=== PATIENT | female | born 1950 | race Caucasian/White ===

== ENCOUNTER 2017-08-25 19:55 | Observation (INO) | payer OTHER, MEDICARE ==
[2017-08-25] MEDS ORDERED: ZOFRAN ODT4 M1 SL (20:30)
[2017-08-25] MEDS ORDERED: PANTOPRAZOLE SO40 M1 PO (20:30)
[2017-08-25] MEDS ORDERED: PRINIVIL10 M1 PO (20:30)
[2017-08-25 20:48] LABS: ABSOLUTE BASOPHIL COUNT 0 /CUMM (0.0-0.2); ABSOLUTE EOSINOPHIL COUNT 0.1 /CUMM (0.0-0.7); ABSOLUTE GRANULOCYTE CT 14.4 /CUMM (1.4-6.5); ABSOLUTE LYMPH COUNT 0.9 /CUMM (1.2-3.4); ABSOLUTE MONOCYTE COUNT 0.2 /CUMM (0.10-0.60); BASOPHIL % 0.2 % (0.0-2.0); EOSINOPHIL % 0.4 % (0-5); HEMATOCRIT 48.3 % (37-47); MEAN CORPUSCULAR HGB 30.6 PG (27.0-31.0); MEAN CORPUSCULAR HGB CONC 34.1 G/DL (33.0-37.0); MEAN CORPUSCULAR VOLUME 89.6 FL (81.0-99.0); MEAN PLATELET VOLUME 8.1 FL (7.4-10.4); PLATELET COUNT 304 /CUMM (130-400); RBC DISTRIBUTION WIDTH 13.7 % (11.5-14.5); RED BLOOD CELL CT 5.39 /CUMM (4.20-5.40); WHITE BLOOD CELL COUNT 15.7 /CUMM (4.8-10.8)
[2017-08-25 21:08] LABS: GRANULOCYTE % 92.1 % (42.2-75.2)
--- NOTE | 2017-08-26 00:34 | ED GI/GU/ABDOMINAL COMPLAINT ---
See Addendum History of Present Illness General Chief Complaint: General Adult Stated Complaint: "IM HAVING A CHRONS ATTACK" Source: patient Exam Limitations: no limitations Vital Signs & Intake/Output Vital Signs & Intake/Output Vital Signs Date Time Temp Pulse Resp B/P B/P Pulse O2 O2 Flow FiO2 Mean Ox Delivery Rate 08/26 0330 98.4 70 20 142/74 99 Room Air 08/26 0122 98.5 72 20 138/80 96 Room Air 08/25 2030 97.6 73 22 167/124 97 Allergies Coded Allergies: Penicillins ("FLAT LINE" 08/25/17) Reconcile Medications Lisinopril (Prinivil) 10 MG TABLET 1 TAB PO DAILY HTN (Reported) Ondansetron (Zofran Odt) 4 MG TAB.RAPDIS 1 TAB SL TID PRN NAUSEA (Reported) Pantoprazole Sodium 40 MG TABLET.DR 1 TAB PO DAILY PRN GERD (Reported) Triage Note: PER PT FLARE UP OF CHRONS SINCE AFTERNNO, REPORTS PAIN BELOW UMBILICUS. IT NEVER GOES AWAY UNTIL I GET IV PAIN MEDS Triage Nurses Notes Reviewed? yes ? n Is pt currently ? No Onset: Gradual Duration: hour(s): Timing: recent history Quality/Severity: cramping, sharpness Location: lower abdomen Radiation: no radiation Activities at Onset: none Prior Abdominal Problems: similar symptoms Modifying Factors: Worsens With: palpation, vomiting. Associated Symptoms: abdominal pain, nausea/vomiting HPI: 67 yo woman h/o crohn's disease, presents with lower abdominal pain, nausea, vomiting. "I am having a crohn's flare.... usually I need antibiotics and steroids...." Her last BM was around yesterday at 2pm, around the same time that she developed abdominal pain. She notes her last flare was one month ago. She notes no fever, chills, chest pain, dizziness. She notes her trigger was likely tostitos. Past History Travel History Traveled to [place] past 21 day No Medical History Any Pertinent Medical History? see below for history Neurological: NONE EENT: NONE Cardiovascular: hypertension Respiratory: NONE Gastrointestinal: CHRONS Hepatic: NONE Renal: NONE Musculoskeletal: NONE Psychiatric: NONE Endocrine: NONE Surgical History Surgical History: none Psychosocial History What is your primary language Estonian Tobacco Use: Never used Family History Hx Contributory? No Review of Systems Review of Systems Constitutional: Reports: no symptoms. EENTM: Reports: no symptoms. Respiratory: Reports: no symptoms. Cardiovascular: Reports: no symptoms. GI: Reports: no symptoms. Genitourinary: Reports: no symptoms. Musculoskeletal: Reports: no symptoms. Skin: Reports: no symptoms. Neurological/Psychological: Reports: no symptoms. Hematologic/Endocrine: Reports: no symptoms. Immunologic/Allergic: Reports: no symptoms. All Other Systems: Reviewed and Negative Physical Exam Physical Exam General Appearance: well developed/nourished Head: atraumatic, normal appearance Eyes: Bilateral: normal appearance. Ears, Nose, Throat, Mouth: hearing grossly normal, moist mucous membrane Neck: normal inspection Respiratory: normal breath sounds, chest non-tender, no respiratory distress, quiet respiration, lungs clear Cardiovascular: regular rate/rhythm Gastrointestinal: soft, lower abdominal tenderness to palpation, no rebound. no guarding. Back: normal inspection Extremities: normal range of motion Neurologic/Psych: no motor/sensory deficits, awake, alert, oriented x 3 Skin: intact Core Measures ACS in differential dx? No Sepsis Present: No Sepsis Focused Exam Completed? No Progress Differential Diagnosis: appendicitis, biliary colic, crohn's flare vs other. uti Plan of Care: Orders Procedure Date/time Status Nothing by Mouth 08/[address] in observation 08/26 0551 Active Pathway - chart 08/26 0549 Active Patient Data 08/26 0549 Active Code Status 08/26 0549 Complete Code Status 08/[address] in observation 08/26 UNK Active VTE Mechanical Prophylaxis 08/26 UNK Active Vital Signs 08/26 UNK Active Intake & Output 08/26 UNK Active Activity/Ambulation 08/26 UNK Active URINALYSIS 08/25 2026 Active LIPASE 08/25 2026 Complete LACTIC ACID 08/25 2026 Complete COMPREHENSIVE METABOLIC PANEL 08/25 2026 Complete CBC WITHOUT DIFFERENTIAL 08/25 2026 Complete AMYLASE 08/25 2026 Complete Current Medications Sig/Tim Start time Last Medication Dose Stop Time Status Admin Lisinopril 10 MG DAILY 08/26 1000 UNVr (Prinivil) Famotidine 20 MG ONCE ONE 08/26 0600 AC (Pepcid) 08/26 0601 Morphine Sulfate 2 MG Q3P PRN 08/26 0600 UNVr (Morphine) Dextrose/Sodium 1,000 ML .Q8H 08/26 0545 UNVr Chloride (D5W-1/2 Normal Saline 1000ML) Ondansetron HCl 4 MG Q8P PRN 08/26 0545 UNVr (Zofran) Laboratory Tests 08/25/172326: Lactic Acid Cancelled 08/25/172037: Anion Gap 12, Estimated GFR > 60, BUN/Creatinine Ratio 28.8 H, Glucose 107 H, Lactic Acid 1.3, Calcium 10.6 H, Total Bilirubin 1.0, AST 24, ALT 38, Alkaline Phosphatase 60, Total Protein 7.4, Albumin 4.7, Globulin 2.7, Albumin/Globulin Ratio 1.7, Amylase 70, Lipase 87, CBC w Diff NO MAN DIFF REQ, RBC 5.39, MCV 89.6 , MCH 30.6, MCHC 34.1, RDW 13.7, MPV 8.1, Gran % 92.1 H, Lymphocytes % 5.9 L, Monocytes % 1.4 L, Eosinophils % 0.4, Basophils % 0.2, Absolute Granulocytes 14.4 H, Absolute Lymphocytes 0.9 L, Absolute Monocytes 0.2, Absolute Eosinophils 0.1, Absolute Basophils 0 Diagnostic Imaging: Viewed by Me: CT Scan. Discussed w/RAD: CT Scan. Radiology Impression: PATIENT: TRACEY RED PRESENT AGE: 67 PATIENT ACCOUNT NO: [id number] : 52 LOCATION: [facility] ORDERING PHYSICIAN: Heath Willson MD SERVICE DATE: 08/26/175 EXAM TYPE: CAT - CT ABD & PELVIS W/O IV CONTRAS EXAMINATION: CT ABDOMEN AND PELVIS WITHOUT CONTRAST CLINICAL INFORMATION: Abdominal pain, history of Crohn's disease COMPARISON: None TECHNIQUE: Multidetector volumetric imaging was performed from the superior aspect of the liver through the pubic symphysis. Sagittal and coronal reformatted images were obtained on the technologist's workstation. DLP: 409.59 mGy-cm FINDINGS: LUNG BASES: There is a subpleural right lower lobe nodule measuring 5 x 3 mm on image . There is a small to moderate-sized hiatal hernia. LIVER, GALLBLADDER, AND BILIARY TREE: The liver is normal in size , shape, and attenuation. No focal hepatic lesion or biliary ductal dilatation is present. Patient is status post cholecystectomy. PANCREAS: Unremarkable. SPLEEN: Unremarkable. ADRENAL GLANDS: Unremarkable. KIDNEYS AND URETERS: The kidneys are normal in size, shape, and attenuation. There is an approximately 2.0 cm right lower pole renal cyst. No hydronephrosis, hydroureter, or calculi seen. No perinephric stranding. BLADDER: Unremarkable. GASTROINTESTINAL TRACT: There are multiple mildly dilated fluid-filled loops of small bowel in the central to lower abdomen, suspicious for small bowel obstruction. A discrete transition point to collapsed bowel is difficult to identify though may occur in the posterior right pelvis. The terminal ileum appears relatively collapsed. The appendix is nondilated. There is a moderate amount of stool in the colon. There is a small amount of fluid in the pelvis as well as some perihepatic ascites. Stranding is present within the mesentery of the pelvis. No free air is seen. ABDOMINAL WALL: There are 2 ventral hernias in the central and lower abdomen located to the right of midline. The superior hernia contains fat and fluid and measures approximately 8.9 x 3.4 cm in the axial plane, while the inferior hernia contains fat and measures approximately 10.0 x 3.9 cm. No bowel is present within the hernia sacs. LYMPH NODES: No lymphadenopathy is seen, though assessment is somewhat limited in the absence of intravenous contrast. VASCULAR: Unremarkable. PELVIC VISCERA: Unremarkable. OSSEOUS STRUCTURES: Degenerative changes are noted in the spine. IMPRESSION: 1. Multiple mildly dilated fluid- filled loops of small bowel in the central to lower abdomen, suspicious for obstruction. Transition point may lie in the posterior right pelvis. Mesenteric edema is noted adjacent to bowel loops in the pelvis, and vascular compromise cannot be excluded in this setting. 2. Small volume of free fluid in the abdomen and pelvis. 3. Right lower lobe lung nodule measuring 5 x 3 mm, nonspecific. If the patient is at high risk for malignancy, [address] is recommended. 4. Small to moderate-sized hiatal hernia. 5. Ventral hernias in the right anterior abdominal wall as described above. DICTATED BY: Willis Vitale MD DATE/TIME DICTATED:08/26/17235 LEVEL VIAL SEALER:CARLOS DATE/TIME TRANSCRIBED:08/26/17235 CONFIDENTIAL, DO NOT COPY WITHOUT APPROPRIATE AUTHORIZATION. <Electronically signed in Other Vendor System> SIGNED BY: Willis Vitale MD 08/26/17 0254 Initial ED EKG: none Departure Departure Disposition: HOME OR SELF CARE Condition: Stable Clinical Impression Primary Impression: Abdominal pain Secondary Impressions: Small bowel obstruction Referrals: Lisandro SCHNEIDER,Tim (PCP/Family) Departure Forms: Customer Survey General Discharge Information Comments 08/26/17, 4:47am... discussed with dr. de la o... pt with possible sbo due to chron's. Surgical PA to evaluate. Observation Note Spoke With: Cole De La O DO Place Patient In: Non-ED OBS Care Area Rationale for Observation: My rational for observation is as follows . pt with small bowel obstruction... merits iv fluids, bowel rest.
--- NOTE | 2017-08-26 02:54 | CT SCAN REPORT ---
EXAMINATION: CT ABDOMEN AND PELVIS WITHOUT CONTRAST CLINICAL INFORMATION: Abdominal pain, history of Crohn's disease COMPARISON: None TECHNIQUE: Multidetector volumetric imaging was performed from the superior aspect of the liver through the pubic symphysis. Sagittal and coronal reformatted images were obtained on the technologist's workstation. DLP: 409.59 mGy-cm FINDINGS: LUNG BASES: There is a subpleural right lower lobe nodule measuring 5 x 3 mm on image 8/89. There is a small to moderate-sized hiatal hernia. LIVER, GALLBLADDER, AND BILIARY TREE: The liver is normal in size, shape, and attenuation. No focal hepatic lesion or biliary ductal dilatation is present. Patient is status post cholecystectomy. PANCREAS: Unremarkable. SPLEEN: Unremarkable. ADRENAL GLANDS: Unremarkable. KIDNEYS AND URETERS: The kidneys are normal in size, shape, and attenuation. There is an approximately 2.0 cm right lower pole renal cyst. No hydronephrosis, hydroureter, or calculi seen. No perinephric stranding. BLADDER: Unremarkable. GASTROINTESTINAL TRACT: There are multiple mildly dilated fluid-filled loops of small bowel in the central to lower abdomen, suspicious for small bowel obstruction. A discrete transition point to collapsed bowel is difficult to identify though may occur in the posterior right pelvis. The terminal ileum appears relatively collapsed. The appendix is nondilated. There is a moderate amount of stool in the colon. There is a small amount of fluid in the pelvis as well as some perihepatic ascites. Stranding is present within the mesentery of the pelvis. No free air is seen. ABDOMINAL WALL: There are 2 ventral hernias in the central and lower abdomen located to the right of midline. The superior hernia contains fat and fluid and measures approximately 8.9 x 3.4 cm in the axial plane, while the inferior hernia contains fat and measures approximately 10.0 x 3.9 cm. No bowel is present within the hernia sacs. LYMPH NODES: No lymphadenopathy is seen, though assessment is somewhat limited in the absence of intravenous contrast. VASCULAR: Unremarkable. PELVIC VISCERA: Unremarkable. OSSEOUS STRUCTURES: Degenerative changes are noted in the spine. IMPRESSION: 1. Multiple mildly dilated fluid-filled loops of small bowel in the central to lower abdomen, suspicious for obstruction. Transition point may lie in the posterior right pelvis. Mesenteric edema is noted adjacent to bowel loops in the pelvis, and vascular compromise cannot be excluded in this setting. 2. Small volume of free fluid in the abdomen and pelvis. 3. Right lower lobe lung nodule measuring 5 x 3 mm, nonspecific. If the patient is at high risk for malignancy, [address] is recommended. 4. Small to moderate-sized hiatal hernia. 5. Ventral hernias in the right anterior abdominal wall as described above.
--- NOTE | 2017-08-26 05:41 | History & Physical ---
Areli Garnica 08/26/17 0523: General Information and HPI MD Statement: I have seen and personally examined TRACEY RED and documented this H&P. The patient is a 67 year old F who presented with a patient stated chief complaint of []. Source of Information: patient Exam Limitations: no limitations History of Present Illness: 67yo Crohns pt presents to ED with abdominal pain that started at 2pm yesterday after she ate corn chips. She had a regular BM followed by loose stool around 3pm and then got nauseous and vomited around 4pm. Pt states that she has had similar episodes before that are crohns flares and that she usually needs steroids, antibiotics and pain meds. Denies fevers. She is a pt of [facility] for her Crohns, last seen there in July and was started on Apriso Allergies/Medications Allergies: Coded Allergies: Penicillins ("FLAT LINE" 08/25/17) Home Med list Lisinopril (Prinivil) 10 MG TABLET 1 TAB PO DAILY HTN (Reported) Ondansetron (Zofran Odt) 4 MG TAB.RAPDIS 1 TAB SL TID PRN NAUSEA (Reported) Pantoprazole Sodium 40 MG TABLET.DR 1 TAB PO DAILY PRN GERD (Reported) Past History Travel History Traveled to [place] past 21 day No Medical History Neurological: NONE EENT: NONE Cardiovascular: hypertension Respiratory: NONE Gastrointestinal: CHRONS Hepatic: NONE Renal: NONE Musculoskeletal: NONE Psychiatric: NONE Endocrine: NONE Surgical History Surgical History: cholecystectomy, tubal ligation Review of Systems Review of Systems Constitutional: Reports: no symptoms. EENTM: Reports: no symptoms. Cardiovascular: Reports: no symptoms. Respiratory: Reports: no symptoms. Genitourinary: Reports: no symptoms. Exam & Diagnostic Data Last 24 Hrs of Vital Signs/I&O Vital Signs Date Time Temp Pulse Resp B/P B/P Pulse O2 O2 Flow FiO2 Mean Ox Delivery Rate 08/26 0122 98.5 72 20 138/80 96 Room Air 08/25 2030 97.6 73 22 167/124 97 Intake & Output 08/26 0800 08/26 0000 08/25 1600 Intake Total 1000 Output Total Balance 1000 Intake, IV 1000 Physical Exam General Appearance Alert, Oriented X3, No Acute Distress Skin No Rashes, No Significant Lesion Skin Temp/Moisture Exam: Warm/Dry HEENT Atraumatic, EOMI, Mucous Membr. moist/pink Neck Supple Cardiovascular Regular Rate, Normal S1, Normal S2 Lungs Clear to Auscultation, Normal Air Movement Abdomen Soft (decreased BS), decreased bowel sounds (tender in epigastic area), no gaurding, no rebound Extremities No Tenderness/Swelling Last 24 Hrs of Labs/Vaibhav: Laboratory Tests 08/25/172326: Lactic Acid Cancelled 08/25/172037: Anion Gap 12, Estimated GFR > 60, BUN/Creatinine Ratio 28.8 H, Glucose 107 H, Lactic Acid 1.3, Calcium 10.6 H, Total Bilirubin 1.0, AST 24, ALT 38, Alkaline Phosphatase 60, Total Protein 7.4, Albumin 4.7, Globulin 2.7, Albumin/Globulin Ratio 1.7, Amylase 70, Lipase 87, CBC w Diff NO MAN DIFF REQ, RBC 5.39, MCV 89.6 , MCH 30.6, MCHC 34.1, RDW 13.7, MPV 8.1, Gran % 92.1 H, Lymphocytes % 5.9 L, Monocytes % 1.4 L, Eosinophils % 0.4, Basophils % 0.2, Absolute Granulocytes 14.4 H, Absolute Lymphocytes 0.9 L, Absolute Monocytes 0.2, Absolute Eosinophils 0.1, Absolute Basophils 0 Diagnostic Data Other Results CT abd/pelvis: Multiple mildly dilated fluid-filled loops of small bowel in the central to lower abdomen, suspicious for obstruction. Transition point may lie in the posterior right pelvis. Mesenteric edema is noted adjacent to bowel loops in the pelvis, and vascular compromise cannot be excluded in this setting. 2. Small volume of free fluid in the abdomen and pelvis. 3. Right lower lobe lung nodule measuring 5 x 3 mm, nonspecific. If the patient is at high risk for malignancy, [address] is recommended. 4. Small to moderate-sized hiatal hernia. 5. Ventral hernias in the right anterior abdominal wall as described above. Assessment/Plan Assessment: 67yo F with Crohns and htn now presents with abdominal pain and a CT suspicious for SBO. Stable. Will place in observation Rec NPO IVF Rec GI consult Analgesics and antiemetics as needed, may need NGT if pt starts vomiting may consider gastrograffin followed by multiview Will discuss with Dr. De La O As Ranked By This Provider Problem List: 1. Abdominal pain 2. Small bowel obstruction Core Measures/Misc (03/29) Acute Coronary Syndrome ACS Diagnosis: No Congestive Heart Failure Congestive Heart Failure Diagnosis No Cerebrovascular Accident CVA/TIA Diagnosis: No VTE (View Protocol) VTE Risk Factors Age>40 No Mechanical VTE Prophylaxis d/t N/A MechProphylax Ordered No VTE Pharm Prophylaxis d/t NA PharmProphylax ordered Sepsis (View protocol) Sepsis Present: No Cole De La O DO 08/26/17 1145: Attending MD Review Statement Attending Statement Attending MD Statement: examined this patient, discuss w/resident/PA/PIZZA DRIVER, agreed w/resident/PA/PIZZA DRIVER, reviewed EMR data (avail), reviewed images Attending Assessment/Plan: Patient seen and examined, agree with above. Presentation as above, N/V, abdominal pain, no diarrhea, h/o Crohn's. AVSS. Wbc 15. Abd-soft. CT scan - ? obstruction. Unclear if truly an obstruction or a manifestation of Crohns, will give gastrograffin and AXR to assess for a true obstruction, GI recs appreciated , NPO/IVF for now.
--- NOTE | 2017-08-26 07:58 | Cons- Gastroenterology ---
General Information and HPI Consulting Request Date of Consult: 08/26/17 Requested By: Cole De La O DO Reason for Consult: I was just called an hour ago to assess this patient with a history of Crohn's disease, nausea, vomiting, diarrhea, & abnormal CT. Source of Information: patient Exam Limitations: fair historian, limited records History of Present Illness: 67 y/o female, HTN, non-DM, mildly obese, fair historian at best, living in [place], [place], but previously working in this area, followed by Dr. Tim Mcmahon for primary care in [place], [place], & by "[facility]" (*name of MD unknown), no old records and [place] computer, allegedly with history of Crohn's disease, diagnosed in 2001. The patient was not certain as to the extent of her Crohn's disease. She was not certain if it was limited to the small bowel or large bowel. She had never had abdominal surgery for the Crohn's. Her AP is intact. She is post CCKY, which was her only abdominal surgery, aside from a tubal ligation. She had never been on biologic agents, 6-MP, or MTX. She was on outpatient Apriso 0.375 mg tab- 4 tabs daily. She had been on intermittent shortness term steroids for flares. She claimed she was told by her GI M.D. that she might need "long-term steroids," but that she did not want this. She took Prilosec as needed for GERD, and occasionally used Zofran for nausea and vomiting. The patient claimed she was last in the [facility] in 07/2017 with a reported flare of her Crohn's disease. She was there a few hours, and sent home. She stated her last EGD and colonoscopy were in 2016 in [place], [place], results unknown. She had never had a PillCam. She stated she was allergic to Penicillin. The patient presented to the [facility] [facility] 08/25/17 at 7:55 p.m., complaining of a "flare of her Crohn's" since that afternoon, reportedly below the umbilicus. It was constant in nature. It was very difficult for her to qualify or quantify her symptoms. She could not tell me for radiated any place. It was reportedly "10 out of 10". Upon arrival, BP 167/124, PT 73, R 22, T 97.6, O2 sat RA 97%. Her BP stabilized soon after. She claimed her symptoms started at 2 PM on 08/25, after eating corn chips. She had multiple episodes of nausea and vomiting, contents showing food and bile. She also had some diarrhea. There was no hematemesis, melena, or rectal bleeding. 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 Her appetite was good up until that day. She claimed she last had a solid bowel movement on 08/25/17. There was no definite constipation, obstipation or change in stool caliber. She denied any tenesmus. She was not on any NSAIDs or recent antibiotics. She denied any family history of GI CA, IBD, GI disease, or inherited liver disease. She was given Morphine, Zofran, Pepcid, GI cocktail, Lisinopril, & IVF in the [facility]. She was anxious. 08/25/17: Admission labs 8:38 p.m.- WBC 15.7 (92% gran/14 gran Ab), H/H 16.5/ 48.3, MCV 89.6, RDW 13.7, PLT 304, glucose 107, BUN/Cr 23/0.8, GFR > 60, Na 140. K 4.7, HCO3 26, AG 12, lactate 1.3, nl A/L 70/87, *Ca 10.6, albumin 4.7, globulin 2.7, TBil 1.0, alk phos 60, AST 24, ALT 38 08/26/17: *elevated high sensitivity CRP 12.2, *normal ESR 4. 08/26/17: U/A- clear, yellow, > 1.030. 6.0, micro-neg; neg nitrite, neg esterase 08/26/17: CT ABDOMEN AND PELVIS WITHOUT CONTRAST (per [facility])- IMPRESSION: 1. Multiple mildly dilated fluid-filled loops of small bowel in the central to lower abdomen, suspicious for obstruction. Transition point may lie in the posterior right pelvis. Mesenteric edema is noted adjacent to bowel loops in the pelvis, and vascular compromise cannot be excluded in this setting. 2. Small volume of free fluid in the abdomen and pelvis. 3. Right lower lobe lung nodule measuring 5 x 3 mm, nonspecific. If the patient is at high risk for malignancy, [address] is recommended. 4. Small to moderate-sized hiatal hernia. 5. Ventral hernias in the right anterior abdominal wall as described above. DICTATED BY: Willis Vitale MD (*I personally reviewed the CT with Dr. Hunter on 08/26/17. The 2 ventral hernias seem to be a separate entity. There was a questionable transition point in the posterior right pelvis, near the ileum. The appendix seemed normal. There was some mesenteric edema adjacent to the bowel loops in the pelvis. There was no adenopathy or free air. There was a small amount of fluid in the pelvis, as well as some perihepatic ascites. Neither the stomach nor the small bowel were markedly dilated). Allergies/Medications Allergies: Coded Allergies: Penicillins ("FLAT LINE" 08/25/17) Home Med List: Lisinopril (Prinivil) 10 MG TABLET 1 TAB PO DAILY HTN (Reported) Ondansetron (Zofran Odt) 4 MG TAB.RAPDIS 1 TAB SL TID PRN NAUSEA (Reported) Pantoprazole Sodium 40 MG TABLET.DR 1 TAB PO DAILY PRN GERD (Reported) Current Medications: Current Medications Sig/Tim Start time Last Medication Dose Route Stop Time Status Admin Dextrose/Sodium 1,000 ML .Q8H 08/26 0545 AC 08/26 Chloride IV 0733 Famotidine 0 .STK-MED ONE 08/26 0641 DC IV Famotidine 20 MG ONCE ONE 08/26 0600 DC 08/26 IV 08/26 0601 0642 Famotidine 0 .STK-MED ONE 08/26 0101 DC IV Famotidine 20 MG ONCE ONE 08/26 0045 DC 08/26 IV 08/26 0046 0112 Lisinopril 10 MG DAILY 08/26 1000 AC PO Morphine Sulfate 2 MG Q3P PRN 08/26 0600 AC IV Morphine Sulfate 0 .STK-MED ONE 08/26 0521 DC .ROUTE Morphine Sulfate 6 MG ONCE ONE 08/26 0515 DC 08/26 IV 08/26 0516 0527 Morphine Sulfate 0 .STK-MED ONE 08/26 0102 DC .ROUTE Morphine Sulfate 6 MG ONCE ONE 08/26 0045 DC 08/26 IV 08/26 0046 0112 Ondansetron HCl 4 MG Q8P PRN 08/26 0545 AC IV Ondansetron HCl 0 .STK-MED ONE 08/26 0101 DC .ROUTE Ondansetron HCl 4 MG ONCE ONE 08/265 DC 08/26 IV 08/26 0046 0112 Sodium Chloride 1,000 ML BOLUS ONE 08/26 004 DC 08/26 IV 08/26 0144 0112 Sodium Chloride 1,000 ML BOLUS ONE 08/26 44 DC 08/26 IV 08/26 0144 0219 Past History Travel History Traveled to [place] past 21 day No Medical History Blood Transfusion Hx: No Neurological: NONE EENT: NONE Cardiovascular: hypertension Respiratory: NONE Gastrointestinal: CROHN'S Hepatic: post CCKY Renal: NONE Musculoskeletal: NONE Psychiatric: NONE Endocrine: obesity (mild) Blood Disorders: NONE Cancer(s): NONE 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 , Age 80; Cause: PNA (pneumonia). FATHER, , Age 80; Cause: CVA (cerebral vascular accident). Psychosocial History Where Do You Live? Home Who Do You Live With? grandson Services at Home: None Primary Language: Armenian Smoking Status: Never Smoked ETOH Use: denies use Illicit Drug Use: denies illicit drug use Living Will? no Power of Rubber Chemist/HCP? no Other Social History: . Lives with grandson. No cigarettes, EtOH, or illicit drugs. 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 2 daughters- [employer] (1 with asthma). Functional Ability ADLs Independent: dressing, eating, toileting, bathing. Ambulation: independent IADLs Independent: shopping, housework, finances, food prep, telephone, transportation , medication admin. 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 Review of Systems Constitutional: Denies: chills, diaphoresis, fever, malaise, weakness, unexplained weight loss. EENTM: Denies: blurred vision, double vision, visual changes, eye pain, eye drainage, eye tearing, icterus, ear discharge, ear pain, ear redness, hearing changes, nasal congestion, epistaxis, nasal pain, throat pain, throat swelling, mouth pain, tooth pain. Cardiovascular: Denies: chest pain, edema, orthopena, palpitations, peripheral edema, syncope. Respiratory: Denies: cough, hemoptysis, orthopnea, short of breath, sputum production, stridor, wheezing. GI: Reports: abdominal pain, diarrhea, nausea, vomiting. Denies: bloating, constipation, distention, bowel incontinence, melena, bloody stool, changes in stool, steatorrhea. Genitourinary: Denies: discharge, dysuria, frequency, hematuria, hesitation, nocturia, pain, urgency. Musculoskeletal: Denies: back pain, gout, joint pain, joint swelling, muscle pain, muscle stiffness, neck pain. Skin: Denies: cysts, change in skin color, change in hair/nails, dryness, erythema, jaundice, lesions, lymphangitis, lumps, moles, rash. Neurological/Psychological: Denies: anxiety, ataxia, cognitive dysfunction, confusion, depressed, dementia, emotional problems, headache, numbness, paresthesia, pre-existing deficit, petit mal seizures, tingling, tremors, tonic-clonic seizures, unable to move lower ext , unable to move upper ext, weakness. Hematologic/Endocrine: Denies: bruising, bleeding, polyuria, polydipsia. Immunologic/Allergic: Denies: splenectomy, HIV/AIDS, lymphadenopathy. All Other Systems: Reviewed and Negative Exam & Diagnostic Data Vital Signs and I&O Vital Signs Date Time Temp Pulse Resp B/P B/P Pulse O2 O2 Flow FiO2 Mean Ox Delivery Rate 08/26 0756 98.0 121/60 08/26 0330 98.4 70 20 142/74 99 Room Air 08/26 0122 98.5 72 20 138/80 96 Room Air 08/25 2030 97.6 73 22 167/124 97 Intake & Output 08/26 1600 08/26 0400 08/25 1600 08/25 0400 08/24 1600 08/24 0400 Intake Total 1000 Output Total Balance 1000 Intake, IV 1000 Physical Exam: Well-developed, well-nourished, slightly obese female, in no apparent distress. Non-toxic appearing. Sclera anicteric. Conjunctiva pink. Oropharynx clear. Slightly dry mucus membranes. No oral thrush. No aphthous ulcers. There is no adenopathy, thyromegaly, or JVD. No peripheral stigmata of inflammatory bowel disease or chronic liver disease on exam. No CVA tenderness. No spine tenderness. Breast & pelvic exams: deferred. Lungs: clear to A&P, with slight decreased BS at the bases B/L. No wheezing, rales, or rhonchi. Heart exam: regular rate rhythm, S1 and S2, without any murmur. Abdominal exam: slightly hypoactive bowel sounds, soft belly, mild to moderate periumbilical tenderness, without guarding or rebound. 2 reducible ventral hernias to the right of the midline; otherwise, no masses. No organomegaly. No fluid shift. No pulsatile mass. No epigastric bruit. Digital rectal exam: refused by patient. Extremities : without C, C, or E. No palpable cords. Mild DJD. No acute arthropathy. No rash. Distal pulses 2+ bilaterally. DTRs 2+ bilaterally. Alert and oriented x 3. Right handed. Motor 5/5 B/L. Brief neuro exam without focal deficits. A detailed exam for peripheral neuropathy was deferred. No tremor. No asterixis. Results Pertinent Lab Results: Laboratory Tests 08/26 08/26 08/25 1248 1021 2327 Chemistry Lactic Acid Cancelled C-React Prot High Sens (1.0 - 3.0 mg/L) 12.2 H Hematology ESR W[place]gren (0 - 20 MM) 4 Urines Urine Color (YEL,AMB,STR) YEL Urine Clarity (CLEAR) CLEAR Urine pH (5.0 - 8.0) 6.0 Ur Specific [place] (1.001 - 1.035) >= 1.030 Urine Protein (NEG,<30 MG/DL) NEG Urine Ketones (NEG) NEG Urine Nitrite (NEG) NEG Urine Bilirubin (NEG) NEG Urine Urobilinogen (0.1 - 1.0 EU/dl) 0.2 Ur Leukocyte Esterase (NEG) NEG Ur Microscopic EXAM NOT REQUIRED Urine Hemoglobin (NEG) NEG Urine Glucose (N MG/DL) NEG 08/25 2037 Chemistry Sodium (137 - 145 mmol/L) 140 Potassium (3.5 - 5.1 mmol/L) 4.7 Chloride (98 - 107 mmol/L) 102 Carbon Dioxide (22 - 30 mmol/L) 26 Anion Gap (5 - 16) 12 BUN (7 - 17 mg/dL) 23 H Creatinine (0.5 - 1.0 mg/dL) 0.8 Estimated GFR (>60 ml/min) > 60 BUN/Creatinine Ratio (7 - 25 %) 28.8 H Glucose (65 - 99 mg/dL) 107 H Lactic Acid (0.7 - 2.1 mmol/L) 1.3 Calcium (8.4 - 10.2 mg/dL) 10.6 H Total Bilirubin (0.2 - 1.3 mg/dL) 1.0 AST (14 - 36 U/L) 24 ALT (9 - 52 U/L) 38 Alkaline Phosphatase (<127 U/L) 60 Total Protein (6.3 - 8.2 g/dL) 7.4 Albumin (3.5 - 5.0 g/dL) 4.7 Globulin (1.9 - 4.2 gm/dL) 2.7 Albumin/Globulin Ratio (1.1 - 2.2 %) 1.7 Amylase (30 - 110 U/L) 70 Lipase (23 - 300 U/L) 87 Hematology CBC w Diff NO MAN DIFF REQ WBC (4.8 - 10.8 /CUMM) 15.7 H RBC (4.20 - 5.40 /CUMM) 5.39 Hgb (12.0 - 16.0 G/DL) 16.5 H Hct (37 - 47 %) 48.3 H MCV (81.0 - 99.0 FL) 89.6 MCH (27.0 - 31.0 PG) 30.6 MCHC (33.0 - 37.0 G/DL) 34.1 RDW (11.5 - 14.5 %) 13.7 Plt Count (130 - 400 /CUMM) 304 MPV (7.4 - 10.4 FL) 8.1 Gran % (42.2 - 75.2 %) 92.1 H Lymphocytes % (20.5 - 51.1 %) 5.9 L Monocytes % (1.7 - 9.3 %) 1.4 L Eosinophils % (0 - 5 %) 0.4 Basophils % (0.0 - 2.0 %) 0.2 Absolute Granulocytes (1.4 - 6.5 /CUMM) 14.4 H Absolute Lymphocytes (1.2 - 3.4 /CUMM) 0.9 L Absolute Monocytes (0.10 - 0.60 /CUMM) 0.2 Absolute Eosinophils (0.0 - 0.7 /CUMM) 0.1 Absolute Basophils (0.0 - 0.2 /CUMM) 0 Imaging/Other Studies: 08/26/17: CT ABDOMEN AND PELVIS WITHOUT CONTRAST (per [facility])- IMPRESSION: 1. Multiple mildly dilated fluid-filled loops of small bowel in the central to lower abdomen, suspicious for obstruction. Transition point may lie in the posterior right pelvis. Mesenteric edema is noted adjacent to bowel loops in the pelvis, and vascular compromise cannot be excluded in this setting. 2. Small volume of free fluid in the abdomen and pelvis. 3. Right lower lobe lung nodule measuring 5 x 3 mm, nonspecific. If the patient is at high risk for malignancy, [address] is recommended. 4. Small to moderate-sized hiatal hernia. 5. Ventral hernias in the right anterior abdominal wall as described above. DICTATED BY: Willis Vitale MD (*I personally reviewed the CT with Dr. Hunter on 08/26/17. The 2 ventral hernias seem to be a separate entity. There was a questionable transition point in the posterior right pelvis, near the ileum. The appendix seemed normal. There was some mesenteric edema adjacent to the bowel loops in the pelvis. There was no adenopathy or free air. There was a small amount of fluid in the pelvis, as well as some perihepatic ascites. Neither the stomach nor the small bowel were markedly dilated). Assessment/Plan Assessment/Recommendations: 67 y/o female, HTN, non-DM, mildly obese, fair historian at best, living in [place], [place], but previously working in this area, followed by Dr. Tim Mcmahon for primary care in [place], [place], & by "[facility]" (*name of MD unknown), no old records and [place] computer, allegedly with history of Crohn's disease, diagnosed in 2001. The patient was not certain as to the extent of her Crohn's disease. She was not certain if it was limited to the small bowel or large bowel. She had never had abdominal surgery for the Crohn's. Her AP is intact. She is post CCKY, which was her only abdominal surgery, aside from a tubal ligation. She had never been on biologic agents, 6-MP, or MTX. She was on outpatient Apriso 0.375 mg tab- 4 tabs daily. She had been on intermittent shortness term steroids for flares. She claimed she was told by her GI M.D. that she might need "long-term steroids," but that she did not want this. She took Prilosec as needed for GERD, and occasionally used Zofran for nausea and vomiting. The patient claimed she was last in the [facility] in 07/2017 with a reported flare of her Crohn's disease. She was there a few hours, and sent home. She stated her last EGD and colonoscopy were in 2016 in [place], [place], results unknown. She had never had a PillCam. She stated she was allergic to Penicillin. The patient presented to the [facility] 08/25/17 at 7:55 p.m., complaining of a "flare of her Crohn's" since that afternoon, reportedly below the umbilicus. It was constant in nature. It was very difficult for her to qualify or quantify her symptoms. She could not tell me for radiated any place. It was reportedly "10 out of 10". Upon arrival, BP 167/124, PT 73, R 22, T 97.6, O2 sat RA 97%. Her BP stabilized soon after. She claimed her symptoms started at 2 PM on 08/25, after eating corn chips. She had multiple episodes of nausea and vomiting, contents showing food and bile. She also had some diarrhea. There was no hematemesis, melena, or rectal bleeding. 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 Her appetite was good up until that day. She claimed she last had a solid bowel movement on 08/25/17. There was no definite constipation, obstipation or change in stool caliber. She denied any tenesmus. She was not on any NSAIDs or recent antibiotics. She denied any family history of GI CA, IBD, GI disease, or inherited liver disease. She was given Morphine, Zofran, Pepcid, GI cocktail, Lisinopril, & IVF in the [facility] ER. She was anxious. 08/25/17: Admission labs 8:38 p.m.- WBC 15.7 (92% gran/14 gran Ab), H/H 16.5/ 48.3, MCV 89.6, RDW 13.7, PLT 304, glucose 107, BUN/Cr 23/0.8, GFR > 60, Na 140. K 4.7, HCO3 26, AG 12, lactate 1.3, nl A/L 70/87, *Ca 10.6, albumin 4.7, globulin 2.7, TBil 1.0, alk phos 60, AST 24, ALT 38 08/26/17: *elevated high sensitivity CRP 12.2, *normal ESR 4. 08/26/17: U/A- clear, yellow, > 1.030. 6.0, micro-neg; neg nitrite, neg esterase 08/26/17: CT ABDOMEN AND PELVIS WITHOUT CONTRAST (per [facility])- IMPRESSION: 1. Multiple mildly dilated fluid-filled loops of small bowel in the central to lower abdomen, suspicious for obstruction. Transition point may lie in the posterior right pelvis. Mesenteric edema is noted adjacent to bowel loops in the pelvis, and vascular compromise cannot be excluded in this setting. 2. Small volume of free fluid in the abdomen and pelvis. 3. Right lower lobe lung nodule measuring 5 x 3 mm, nonspecific. If the patient is at high risk for malignancy, [address] is recommended. 4. Small to moderate-sized hiatal hernia. 5. Ventral hernias in the right anterior abdominal wall as described above. DICTATED BY: Willis Vitale MD (*I personally reviewed the CT with Dr. Hunter on 08/26/17. The 2 ventral hernias seem to be a separate entity. There was a questionable transition point in the posterior right pelvis, near the ileum. The appendix seemed normal. There was some mesenteric edema adjacent to the bowel loops in the pelvis. There was no adenopathy or free air. There was a small amount of fluid in the pelvis, as well as some perihepatic ascites. Neither the stomach nor the small bowel were markedly dilated). *Probable flare of Crohn's in distal ileum, based on review of CT with Dr. Hunter & past history, although no old medical records here. The patient has 2 fairly large ventral hernias to the right of the midline, which appeared to be a separate entity. She was on minimal outpatient medications for her Crohn's, just Apriso 0.375 mg tab-> 4 tabs daily. She had never been on biologic agents, 6-MP, or MTX. She is a fair historian at best. She does not know the name of her treating GI M.DKatt, but claimed she is followed by "[facility]". She told me she was reluctant in the past to be on long-term steroids. *I told her that long-term steroids are not indicated for maintenance therapy for Crohn's disease , but rather perhaps, a short course of steroids could be of benefit, to help induce remission. The risks & benefits of short-term steroid therapy were discussed with the patient, and she agreed to these, if needed. Her stomach was not distended. Her small bowel was not markedly distended, and she did not absolutely need an NG tube at present. She was admitted to 23 hour observation on the surgical service. *SUGGEST: NPO. IVF. Follow-up electrolytes. Follow-up CBC with differential. Anti- emetics. Judicious use of analgesics. May give PPI for hx GERD. Serial abdominal exams. Consideration for transvaginal ultrasound to check RLQ. If increased nausea, vomiting, or distention, consideration for NG tube. If patient worsens, trial of IV Solu-Medrol 40 mg BID. Advise Accu-Chek monitoring when on steroids. *Check ESR, *CRP (*not high sensitivity CRP), & fecal calprotectin. *Consideration for Gastrografin study from above, to help better determine transition point. The patient stated she wanted to leave the hospital , but I told her this could not be done if she were obstructed, and that she would have to leave [facility]. *The patient plans on following up with her "[facility]" [facility]ah (*name unknown), after she leaves [place]. The patient was also told that if her Crohn's flares became more frequent and/or severe, she should be considered for biologic therapy and/or immunosuppressant therapy, by her GI MD. She was also told that her ventral hernias seemed to be a separate issue, but that they may have to be addressed at some point. Please try to get old records from "[facility]". If diarrhea persists, would send stool for C&S, C. difficile , Shiga toxin, Giardia Ag, Cryptosporidia Ag, Yersinia, & Vibrio. As an aside, she was told to follow up with her PMD for the incidental tiny lung nodule noted in CT. A message was left with Dr. De La O, of surgery, regarding the above, & the case was later discussed with him. Further inpatient GI recommendations to follow, depending on clinical course. Problem List: 1. Small bowel obstruction 2. Abdominal pain 3. Nausea and vomiting 4. Crohns disease 5. Ventral hernia Copies To: Lisandro SCHNEIDER,Helar; Cole De La O DO Consult Acknowledgment - Thank you for your consult request.
--- NOTE | 2017-08-26 17:40 | RADIOLOGY REPORT ---
EXAMINATION: CR ABDOMEN MULTIPLE VIEWS CLINICAL INDICATION: Small bowel obstruction. X-ray 4-6 hours after oral intake of 120 mL of Gastrografin. COMPARISON: CT scan of the abdomen and pelvis dated 08/26/2017. TECHNIQUE: 2 views of the abdomen performed on 4 images. FINDINGS: Ingested oral contrast is partially seen outlining small bowel loops in the left upper quadrant. Majority of the contrast has traveled into the colon, outlining the ascending, transverse and descending colon down to the sigmoid colon. No evidence of bowel obstruction or perforation is seen. Evaluation on the upright views is limited by motion, despite repeating multiple times. Right upper quadrant constance are in place from prior cholecystectomy. IMPRESSION: Slightly limited exam due to motion on the upright view. No definite evidence of bowel obstruction or perforation. Cholecystectomy constance noted in the right upper quadrant.
--- NOTE | 2017-08-27 07:50 | PN- General Surgery ---
See Addendum Subjective Subjective: Patient reports improvement in pain and reports 4 loose bowel movements, she is requesting immodium, explained to patient that is it a side effect gastrograffin. She is requesting to eat something and states she has been ambulating. She reports she would like to go home today. Objective Vital Signs and I&Os Vital Signs Date Time Temp Pulse Resp B/P B/P Pulse O2 O2 Flow FiO2 Mean Ox Delivery Rate 08/27 0640 97.5 57 18 123/65 98 Room Air 08/27 0340 98.4 08/27 0335 98.4 57 18 140/67 98 Room Air 08/27 0042 97 Room Air 08/26 2349 97.1 59 18 112/54 97 Room Air 08/26 2030 98.1 66 18 117/57 96 Room Air 08/26 1527 97.5 60 18 149/67 99 Room Air 08/26 1426 98.0 67 18 145/67 98 Room Air 08/26 1041 63 18 131/79 95 Room Air 08/26 1028 63 18 143/65 Intake & Output 08/27 0800 08/27 0000 08/26 1600 08/26 0800 08/26 0000 08/25 1600 Intake Total 950 1000 Output Total Balance 950 1000 Intake, IV 1000 Intake, Oral 950 Physical Exam: Gen - resting comfortably in er stretcher awake an alert in NAD Cardiac - S1S2 noted, RRR Lungs - CTAB Abd - soft, nondistended, normoactive bs, mildly tender in LUQ, otherwise nontender throughout, no rebound or guarding noted Ext - no edema or calf tenderness B/L Current Medications: Current Medications Sig/Tim Start time Last Medication Dose Route Stop Time Status Admin Acetaminophen 0 .STK-MED ONE 08/27 0342 DC PO Acetaminophen 0 .STK-MED ONE 08/26 2234 DC PO Acetaminophen 650 MG Q4P PRN 08/26 2200 AC 08/27 PO 0340 Dextrose/Sodium 1,000 ML .Q8H 08/26 0545 DC 08/26 Chloride IV 1359 Lisinopril 0 .STK-MED ONE 08/26 1024 DC PO Lisinopril 10 MG DAILY 08/26 1000 AC 08/26 PO 1028 Morphine Sulfate 0 .STK-MED ONE 08/26 1709 DC .ROUTE Morphine Sulfate 0 .STK-MED ONE 08/26 1340 DC .ROUTE Morphine Sulfate 0 .STK-MED ONE 08/26 1024 DC .ROUTE Morphine Sulfate 2 MG Q3P PRN 08/26 0600 DC 08/26 IV 1708 Ondansetron HCl 4 MG Q8P PRN 08/26 0545 AC IV Oxycodone/ 0 .STK-MED ONE 08/26 1825 DC Acetaminophen PO Oxycodone/ 2 TAB ONCE ONE 08/26 1745 DC 08/26 Acetaminophen PO 08/26 1746 1824 Results Last 48 Hours of Labs: Laboratory Tests 08/26 08/26 08/25 1248 1021 2327 Chemistry Lactic Acid Cancelled C-React Prot High Sens (1.0 - 3.0 mg/L) 12.2 H Hematology ESR Westergren (0 - 20 MM) 4 Urines Urine Color (YEL,AMB,STR) YEL Urine Clarity (CLEAR) CLEAR Urine pH (5.0 - 8.0) 6.0 Ur Specific [place] (1.001 - 1.035) >= 1.030 Urine Protein (NEG,<30 MG/DL) NEG Urine Ketones (NEG) NEG Urine Nitrite (NEG) NEG Urine Bilirubin (NEG) NEG Urine Urobilinogen (0.1 - 1.0 EU/dl) 0.2 Ur Leukocyte Esterase (NEG) NEG Ur Microscopic EXAM NOT REQUIRED Urine Hemoglobin (NEG) NEG Urine Glucose (N MG/DL) NEG 08/25 2037 Chemistry Sodium (137 - 145 mmol/L) 140 Potassium (3.5 - 5.1 mmol/L) 4.7 Chloride (98 - 107 mmol/L) 102 Carbon Dioxide (22 - 30 mmol/L) 26 Anion Gap (5 - 16) 12 BUN (7 - 17 mg/dL) 23 H Creatinine (0.5 - 1.0 mg/dL) 0.8 Estimated GFR (>60 ml/min) > 60 BUN/Creatinine Ratio (7 - 25 %) 28.8 H Glucose (65 - 99 mg/dL) 107 H Lactic Acid (0.7 - 2.1 mmol/L) 1.3 Calcium (8.4 - 10.2 mg/dL) 10.6 H Total Bilirubin (0.2 - 1.3 mg/dL) 1.0 AST (14 - 36 U/L) 24 ALT (9 - 52 U/L) 38 Alkaline Phosphatase (<127 U/L) 60 Total Protein (6.3 - 8.2 g/dL) 7.4 Albumin (3.5 - 5.0 g/dL) 4.7 Globulin (1.9 - 4.2 gm/dL) 2.7 Albumin/Globulin Ratio (1.1 - 2.2 %) 1.7 Amylase (30 - 110 U/L) 70 Lipase (23 - 300 U/L) 87 Hematology CBC w Diff NO MAN DIFF REQ WBC (4.8 - 10.8 /CUMM) 15.7 H RBC (4.20 - 5.40 /CUMM) 5.39 Hgb (12.0 - 16.0 G/DL) 16.5 H Hct (37 - 47 %) 48.3 H MCV (81.0 - 99.0 FL) 89.6 MCH (27.0 - 31.0 PG) 30.6 MCHC (33.0 - 37.0 G/DL) 34.1 RDW (11.5 - 14.5 %) 13.7 Plt Count (130 - 400 /CUMM) 304 MPV (7.4 - 10.4 FL) 8.1 Gran % (42.2 - 75.2 %) 92.1 H Lymphocytes % (20.5 - 51.1 %) 5.9 L Monocytes % (1.7 - 9.3 %) 1.4 L Eosinophils % (0 - 5 %) 0.4 Basophils % (0.0 - 2.0 %) 0.2 Absolute Granulocytes (1.4 - 6.5 /CUMM) 14.4 H Absolute Lymphocytes (1.2 - 3.4 /CUMM) 0.9 L Absolute Monocytes (0.10 - 0.60 /CUMM) 0.2 Absolute Eosinophils (0.0 - 0.7 /CUMM) 0.1 Absolute Basophils (0.0 - 0.2 /CUMM) 0 Recent Imaging Studies: SERVICE DATE: 08/26/17-1499 EXAM TYPE: RAD - [id number] VIEWS EXAMINATION: CR ABDOMEN MULTIPLE VIEWS CLINICAL INDICATION: Small bowel obstruction. X-ray 4-6 hours after oral intake of 120 mL of Gastrografin. COMPARISON: CT scan of the abdomen and pelvis dated 08/26/2017. TECHNIQUE: 2 views of the abdomen performed on 4 images. FINDINGS: Ingested oral contrast is partially seen outlining small bowel loops in the left upper quadrant. Majority of the contrast has traveled into the colon, outlining the ascending, transverse and descending colon down to the sigmoid colon. No evidence of bowel obstruction or perforation is seen. Evaluation on the upright views is limited by motion, despite repeating multiple times. Right upper quadrant constance are in place from prior cholecystectomy. IMPRESSION: Slightly limited exam due to motion on the upright view. No definite evidence of bowel obstruction or perforation. Cholecystectomy constance noted in the right upper quadrant. Assessment/Plan Assessment/Plan 67 year old female with sbo which has resolved and possible crohns flare Stable from a surgical standpoint Advance to low residue diet Encourage ambulation Tylenol for pain prn F/u with GI regarding outpt crohns management Cont obs status is anticipation of d/c today Will require f/u with her [place] [facility] doctor Will require f/u with PCP for pulmonary nodule D/w Dr. De La O Core Measures Venous Thromboembolism VTE Risk Factors Age>40 No Mechanical VTE Prophylaxis d/t N/A MechProphylax Ordered No VTE Pharm Prophylaxis d/t NA PharmProphylax ordered
--- NOTE | 2017-08-27 09:21 | Surg Short-stay <48hrs Dis Sum ---
Visit Information Visit Dates Admission Date: 08/26/17 Discharge Date: 08/27/17 Surgical Short Stay DC Summary Admission Diagnosis: Small bowel obstruction, resolved Crohns disease, acute Final Diagnosis: Same Procedure(s): None Summary/Significant Findings: Patient presented to the ER on 08/26/14 with nausea, vomiting and abdominal pain. Found on CT scan to have a possible obstruction verses manifestation of Crohns. GI was consulted and suspected probable Crohns flare. She recieved gastrografin and had an abdominal x-ray later than day, which revealed contrast in the colon. Diet was advanced and tolerated. Pain is well-controlled. She was instructed to follow up with her established sample weaver and to resume her Apriso. She is stable for discharge. Condition at Discharge: Stable Discharge Disposition: home or self care Discharge instructions provided to patient/family: Yes Post discharge follow-up plan: F/u with established Electron Beam Operator in [place] within 1 week for Crohns management. Resume Aprioso until you follow up with your doctor F/u with PCP, Dr. Tim Mcmahon for pulmonary nodule in right lower lobe lung nodule measuring 5 x 3 mm Copies to: Tim Mcmahon MD
--- NOTE | 2017-08-27 09:34 | Patient Discharge Instructions ---
Discharge Instructions General Discharge Information You were seen/treated for: 1. Possible small bowel obstruction 2. Crohns flare You had these procedures: None. Watch for these problems: Increased pain, nausea, vomiting, inability to pass gas/move your bowels, fever, chills. Special Instructions: Resume Apriso until you follow up with your water gas operator. Diet Recommended Diet: Low Residue Activity Full Activity/No Limits: Yes Acute Coronary Syndrome Inclusion Criteria At DC or during hospital stay patient has or had the following: ACS DIAGNOSIS No Discharge Core Measures Meds if any: Prescribed or Continued at Discharge Meds if any: NOT Prescribed or Continued at Discharge Congestive Heart Failure Inclusion Criteria At DC or during hospital stay patient has or had the following: CHF DIAGNOSIS No Discharge Core Measures Meds if any: Prescribed or Continued at Discharge Meds if any: NOT Prescribed or Continued at Discharge Cerebrovascular accident Inclusion Criteria At DC or during hospital stay patient has or had the following: CVA/TIA Diagnosis No Discharge Core Measures Meds if any: Prescribed or Continued at Discharge Meds if any: NOT Prescribed or Continued at Discharge Venous thromboembolism Inclusion Criteria VTE Diagnosis No VTE Type NONE VTE Confirmed by (Test) NONE Discharge Core Measures - Per Current guidelines, there needs to be overlap - treatment for the first 5 days of Warfarin therapy. - If discharged on Warfarin prior to 5 days of - overlap therapy, the patient will need to be - assessed for post discharge needs including - *Post discharge parental anticoagulation - *Warfarin and/or parental anticoagulation education - *Follow up date to check INR post discharge At least 5 days overlap therapy as Inpatient No Meds if any: Prescribed or Continued at Discharge Note: Overlap Therapy is Warfarin and Anticoagulant Meds if any: NOT Prescribed or Continued at Discharge
[2017-08-27] MEDS ORDERED: APRISO0.375 G1 PO (10:10)
[2017-08-27 10:26] VITALS: BP 170/80
== END 2017-08-27 11:44 ==
LOC: ERH 19:55 → ERHI 08-26 05:51 → ENRESERV 08-26 17:28 → ERHI 08-27 11:44
PROVIDERS: Emergency Medicine
DX: K56.609 Unspecified intestinal obstruction, unspecified as to partial versus complete obstruction (principal); K50.90 Crohn's disease, unspecified, without complications; I10 Essential (primary) hypertension; E66.9 Obesity, unspecified; R11.2 Nausea with vomiting, unspecified; K43.9 Ventral hernia without obstruction or gangrene
CPT/HCPCS: 74021; 74176; 81003; 96374; 96375; 96376; G0378; J2405; J3101; J7042